=== PATIENT | female | born 1960 | race African-American/Black ===

== ENCOUNTER 2019-08-22 17:41 | Emergency (ER) | payer OTHER ==
[~2019-08-22] VITALS: Ht 162.6 cm; Wt 96.6 kg
[2019-08-22 19:42] LABS: Basophils # (auto) 0.1 uL; Eosinophils # (auto) 0.2 uL; Hemoglobin 14.8 g/dL (12.2-16.2); Lymphocytes # (auto) 2.1 uL; Mean Corpuscular Hgb Conc. 32.9 g/dL (32.0-36.0); Monocytes # (auto) 0.6 uL
[2019-08-22 19:44] LABS: Eosinophils % (auto) 2.4 % (0.0-7.0); Hematocrit 44.8 % (36.0-46.0); Lymphocytes % (auto) 21.2 % (10.0-50.0); Mean Corpuscular Hemoglobin 26.2 pg (28.0-32.0); Mean Corpuscular Volume 79.7 fL (80.0-100.0); Neutrophils # (auto) 6.9 uL; Neutrophils % (auto) 69.4 % (37.0-80.0); Nucleated Red Blood Cells % 0.1 %; Platelet Count (auto) 239 10^3/uL (140-450); Red Blood Cells 5.63 10^6/uL (4.0-5.20); Red Cell Distribution Width 14.3 % (11.8-14.3)
[2019-08-22 19:57] LABS: Albumin 3.7 g/dL (3.4-5.0); BUN/Creatinine Ratio 7.4
[2019-08-22 20:00] LABS: Bilirubin, Total 0.5 mg/dL (0.2-1.0); Total Protein 8.5 g/dL (6.4-8.2)
[2019-08-22] MEDS ORDERED: cefTRIAXone W LIDOCAINE 1 GM IM IM ONE (21:00)
[2019-08-22] MEDS ORDERED: cefTRIAXone SOD 1,000 MG VL ONE (21:53)
[2019-08-22] MEDS ORDERED: LIDOCAINE 2% (LOCAL ANESTH.) PF 5ml SDV ONE (21:53)
[2019-08-22 22:04] VITALS: BP 125/62
== END 2019-08-22 22:04 | disposition home or self-care (01) ==
LOC: ER 17:57
DX: L03.116 Cellulitis of left lower limb (principal); E11.9 Type 2 diabetes mellitus without complications
CPT/HCPCS: 36415; 80053; 85025; 93971; 96372; 99284; J0696; J2001